=== PATIENT | female | born 1990 | race Caucasian/White ===

== ENCOUNTER 2023-08-28 06:26 | Emergency (ER) | payer OTHER ==
[2023-08-28 06:44] VITALS: BP 101/58; PULSE 73; RESP 20; TEMP 98.6; BMI 31.6
== END 2023-08-28 07:52 | disposition home or self-care (01) ==
LOC: JER 06:26
DX: K08.89 Other specified disorders of teeth and supporting structures (principal)
CPT/HCPCS: 99283-25